=== PATIENT | female | born 1985 | race Caucasian/White ===

== ENCOUNTER → 2016-12-03 | Outpatient (CLI) | payer BC, MEDICARE ==
--- NOTE | 2016-12-07 13:46 | Pulmonary Function Test ---
Pulmonary Function Test Date of Procedure:: 12/03/16 INDICATION:: Dyspnea Referring Provider: Dr. Michael Rodriguez Box Nailer: Hayley Overton DIRECTOR STRATEGIC PLANNING - Report Spirometry: FVC 4.76 L 124% FEV1 3.15 L 97% FEV1/FVC % 66 predicted 85 Total lung capacity 5.85 L 98% Vital capacity 4.76 L 124% Inspiratory capacity 2.59 L FRC 3.16 L 111% ERV 0.25 L Residual volume 0.89 L 48% RV/TLC % 16 predicted 30 Diffusion capacity 28.5 103% DLCO/VA 4.54 100% Lung Volume: Total lung capacity 5.85 L 98% Vital capacity 4.76 L 124% Inspiratory capacity 2.59 L FRC 3.16 L 111% ERV 0.25 L Residual volume 0.89 L 48% RV/TLC % 16 predicted 30 Diffusion Capactity: Diffusion capacity 28.5 103% DLCO/VA 4.54 100% Impression: Study demonstrates a mild obstructive ventilatory defect. There is no restrictive ventilatory defect hyperinflation or air trapping. Diffusion capacity is normal
== END ==
LOC: RT 07:27
PROVIDERS: ATTEND Internal Medicine Pulmonary Disease
DX: R06.02 Shortness of breath (principal)
CPT/HCPCS: 94010; 94727; 94729; 94760

== ENCOUNTER → 2018-05-23 | Outpatient (CLI) | payer BC | LOC: OD 11:03 | PROVIDERS: ATTEND Nurse Practitioner Acute Care | DX: R30.0 Dysuria (principal) | CPT/HCPCS: 87086 ==

== ENCOUNTER 2020-07-02 15:46 | Outpatient (CLI) | payer BC ==
[2020-07-02] MEDS ORDERED: BUTALB/ACETAMINOPHEN/CAFFEINE 1 TAB EACH PO ONE (16:19)
[2020-07-02] MEDS ORDERED: BUTALB/ACETAMINOPHEN/CAFFEINE 1 TAB EACH ONE (16:31)
[2020-07-02 16:40] LABS: APPEARANCE,URINE SLIGHTLY-CLOUDY; BILIRUBIN,URINE NEGATIVE (NEGATIVE); CALCIUM OXALATE CRYSTALS,URINE RARE /HPF; COLOR,URINE YELLOW; GLUCOSE, URINE NEGATIVE (NEGATIVE); KETONES,URINE NEGATIVE (NEGATIVE); LEUKOCYTE ESTERASE,URINE NEGATIVE (NEGATIVE); NITRITE,URINE NEGATIVE (NEGATIVE); PROTEIN,URINE NEGATIVE (NEGATIVE); URINE SPECIFIC GRAVITY 1.015; UROBILINOGEN,URINE NEGATIVE mg/dL (<2.0)
[2020-07-02 16:54] LABS: URINE AMPHETAMINES SCREEN NEGATIVE; URINE BARBITURATES SCREEN NEGATIVE; URINE BENZODIAZEPINES SCREEN NEGATIVE; URINE COCAINE SCREEN NEGATIVE; URINE MARIJUANA (THC) SCREEN NEGATIVE; URINE METHADONE SCREEN NEGATIVE; URINE PHENCYCLIDINE SCREEN NEGATIVE
[2020-07-02 16:58] LABS: UR PRO/CREAT RATIO RESULT 0.2 mg/mg (0.0-0.2); URINE CREATININE 120.4 mg/dL (16-327); URINE PROTEIN 18.1 mg/dL (<12)
[2020-07-02 17:18] LABS: ABSOLUTE EOSINOPHILS # (AUTO) 0.1 10^3/uL (0.0-0.6); ABSOLUTE LYMPHOCYTES (AUTO) 1.3 10^3/uL (0.5-4.7); ABSOLUTE MONOCYTES (AUTO) 0.5 10^3/uL (0.1-1.4); ABSOLUTE NEUT (AUTO) 6.5 10^3/uL (1.7-8.2); BASOPHILS % (AUTO) 0.5 % (0-2); EOSINOPHILS % (AUTO) 1.6 % (0-6); HEMATOCRIT 31.2 % (36.0-47.0); HEMOGLOBIN 10.6 g/dL (12.0-15.5); LYMPHOCYTES % (AUTO) 15.6 % (13-45); MEAN CORPUSCULAR HGB CONC 34.1 g/dL (32.0-36.0); MEAN CORPUSCULAR VOLUME 82 fl (80-97); MONOCYTES % (AUTO) 6.2 % (3-13); PLATELET COUNT 180 10^3/uL (150-450); RED CELL DISTRIBUTION WIDTH 13.4 % (11.5-14.0); SEGMENTED NEUTROPHILS % (AUTO) 76.1 % (42-78); TOTAL CELLS COUNTED % (AUTO) 100 %; WHITE BLOOD COUNT 8.5 10^3/uL (4.0-10.5)
[2020-07-02 17:35] LABS: ALBUMIN 3.4 g/dL (3.5-5.0); ALKALINE PHOSPHATASE 89 U/L (38-126); ANION GAP 8 (5-19); ASPARTATE AMINO TRANSFERASE 19 U/L (14-36); BILIRUBIN,DIRECT 0.2 mg/dL (0.0-0.4); BILIRUBIN,TOTAL 0.3 mg/dL (0.2-1.3); BLOOD UREA NITROGEN 8 mg/dL (7-20); CARBON DIOXIDE 22 mmol/L (22-30); CHLORIDE 106 mmol/L (98-107); GLUCOSE 108 mg/dL (75-110); POTASSIUM 4.2 mmol/L (3.6-5.0); TOTAL PROTEIN 6.2 g/dL (6.3-8.2); URIC ACID 4.1 mg/dL (2.5-6.2)
--- NOTE | 2020-07-02 18:19 | Non Stress Test Report ---
Non Stress Test Datetime Report Generated by CPN: 07/02/2020 18:19 DEMOGRAPHIC EGA NST: 36.4 INDICATION Indication for Study (NST) Other: LC for Pre E VITAL SIGNS Temperature - NST: 98.3 Pulse - NST: 85 RESP - NST: 16 NBPSYS NST: 128 NBPDIA NST: 71 MONITORING Monitor Explained: Monitor Explained; Test Explained; Patient Verbalized Understanding Time on Monitor: 07/02/2020 17:59 Time off Monitor: 07/02/2020 18:08 NST INTERVENTIONS NST Interventions: PO Hydration; Reposition Patient Physician Notified NST: Saulo MD BABY A: [id number] BABY A Movement : Present Contraction Frequency : Irregular FHR Baseline : 135 Accelerations : 15X15 Decelerations : None Variability : Moderate 6-25bpm NST Review: Meets Criteria for Reactive NST NST Review and Verified By : Jadon Torres RN NSLuisa Results: Reactive NST REPORT Report Trigger: Send Report
== END 2020-07-02 18:13 | disposition home or self-care (01) ==
LOC: LC 15:46
PROVIDERS: ATTEND Obstetrics & Gynecology
DX: O16.3 Unspecified maternal hypertension, third trimester (principal); Z3A.36 36 weeks gestation of pregnancy
CPT/HCPCS: 59025; 36415; 83615; 84156; 84550; 82570; 85025; 80053; 81001; 80307; J3490

== ENCOUNTER 2020-07-07 19:25 | Inpatient (IN) | payer BC ==
[2020-07-07] MEDS ORDERED: OXYTOCIN/0.9 % SODIUM CHLORIDE 30 UNIT/500 ML RTUINJ IV PRN (19:35)
[2020-07-07] MEDS ORDERED: RINGERS SOLUTION,LACTATED 300 ML IV ONE (19:35)
[2020-07-07] MEDS ORDERED: DINOPROSTONE 10 MG VAGINAL INSERT.SR PV ONE (19:35)
[2020-07-07] MEDS ORDERED: MAG HYDROX/AL HYDROX/SIMETH SUSP 30 ML UDCUP PO PRN (19:35)
[2020-07-07] MEDS ORDERED: ZOLPIDEM TARTRATE 5 MG TABLET PO PRN (19:35)
[2020-07-07] MEDS ORDERED: ACETAMINOPHEN 325 MG TABLET PO PRN (19:35)
[2020-07-07] MEDS: RINGERS SOLUTION,LACTATED 1,000 ML IV PRN (20:10)
[2020-07-07] MEDS ORDERED: DINOPROSTONE 10 MG VAGINAL INSERT.SR ONE (20:18)
[2020-07-07 20:23] LABS: ABSOLUTE EOSINOPHILS # (AUTO) 0.2 10^3/uL (0.0-0.6); ABSOLUTE LYMPHOCYTES (AUTO) 1.6 10^3/uL (0.5-4.7); ABSOLUTE MONOCYTES (AUTO) 0.7 10^3/uL (0.1-1.4); ABSOLUTE NEUT (AUTO) 7.1 10^3/uL (1.7-8.2); BASOPHILS % (AUTO) 0.4 % (0-2); EOSINOPHILS % (AUTO) 1.6 % (0-6); HEMATOCRIT 30.1 % (36.0-47.0); HEMOGLOBIN 10.1 g/dL (12.0-15.5); MEAN CORPUSCULAR HGB CONC 33.5 g/dL (32.0-36.0); MEAN CORPUSCULAR VOLUME 83 fl (80-97); PLATELET COUNT 187 10^3/uL (150-450); RED BLOOD COUNT 3.61 10^6/uL (3.72-5.28); RED CELL DISTRIBUTION WIDTH 13.5 % (11.5-14.0); TOTAL CELLS COUNTED % (AUTO) 100 %; WHITE BLOOD COUNT 9.6 10^3/uL (4.0-10.5)
[2020-07-07 20:25] LABS: APPEARANCE,URINE CLEAR; BILIRUBIN,URINE NEGATIVE (NEGATIVE); COLOR,URINE STRAW; GLUCOSE, URINE NEGATIVE (NEGATIVE); KETONES,URINE NEGATIVE (NEGATIVE); LEUKOCYTE ESTERASE,URINE NEGATIVE (NEGATIVE); NITRITE,URINE NEGATIVE (NEGATIVE); PROTEIN,URINE NEGATIVE (NEGATIVE); URINE SPECIFIC GRAVITY 1.006; UROBILINOGEN,URINE NEGATIVE mg/dL (<2.0)
[2020-07-07 20:39] LABS: URINE AMPHETAMINES SCREEN NEGATIVE; URINE BENZODIAZEPINES SCREEN NEGATIVE; URINE COCAINE SCREEN NEGATIVE; URINE MARIJUANA (THC) SCREEN NEGATIVE; URINE METHADONE SCREEN NEGATIVE; URINE PHENCYCLIDINE SCREEN NEGATIVE
[2020-07-07 20:46] LABS: ALBUMIN 3.4 g/dL (3.5-5.0); ALKALINE PHOSPHATASE 94 U/L (38-126); ANION GAP 6 (5-19); ASPARTATE AMINO TRANSFERASE 20 U/L (14-36); BILIRUBIN,DIRECT 0.2 mg/dL (0.0-0.4); BILIRUBIN,TOTAL 0.2 mg/dL (0.2-1.3); BLOOD UREA NITROGEN 8 mg/dL (7-20); CARBON DIOXIDE 22 mmol/L (22-30); CHLORIDE 106 mmol/L (98-107); GLUCOSE 92 mg/dL (75-110); POTASSIUM 3.7 mmol/L (3.6-5.0); TOTAL PROTEIN 6.4 g/dL (6.3-8.2); URIC ACID 3.9 mg/dL (2.5-6.2)
[2020-07-07 20:47] LABS: URINE BARBITURATES SCREEN UNCONFIRMED POSITIVE
--- NOTE | 2020-07-07 23:39 | Admission Physical ---
Datetime Report Generated by CPN: 07/07/2020 23:38 CURRENT ADMISSION Chief Complaint: Uterine Contractions Indication for Induction: PreEclampsia Admit Impression : Term, Intrauterine ; Induction of Labor Admit Plan: Initiate Labor Induction Protocol ALLERGIES Medication Allergies: No Medication Allergies: gluten (07/07/2020) Latex: No Latex Allergies OBSTETRICAL HISTORY EDC: 07/26/2020 00:00 : 3 Para: 1 Term: 1 : 0 SAB: 0 IAB: 0 Ectopic: 0 Livin Cesareans: 0 VBACs: 0 Multiple Births: 0 Gestational Diabetes: No Rh Sensitization: No Incompetent Cervix: No TERESSA: No Infertility: No ART Treatment: No Uterine Anomaly: No IUGR: No Hx Previous C/S: No Macrosomia: No Hx Loss/Stillborn: No PIH: Yes Hx : No Placenta Previa/Abruption: No Depression/PP Depression: No PTL/PROM: No Post Hemorrhage: No Current Procedures: Ultrasound; NST Obstetrical History Comments: G1-SAB G2- Epidural Girl, Pre E G3- Current SEE RECORDS Alcohol: No Marijuana : No Cocaine: No Other Illicit Drugs: No Cigarettes: Never Smoker. [id number] MEDICAL HISTORY Diabetes: No Blood Transfusion: Yes Pulmonary Disease (Asthma, TB): No Breast Disease: No Hypertension: Yes Service Provider Surgery: No Heart Disease: Yes Hosp/Surgery: Yes Autoimmune Disorder: No Anesthetic Complications: No Kidney Disease: No Abnormal Pap Smear: No Neuro/Epilepsy: No Psychiatric Disorders: No Other Medical Diseases: No Hepatitis/Liver Disease: No Significant Family History: No Varicosities/Phlebitis: No Trauma/Violence : No Thyroid Dysfunction: No Medical History Comments: Heart problems, ASD repair, Anemia during , hx of blood transfusion, pre e with first , Celiac disease, Appendectomy INFECTIOUS HISTORY Gonorrhea: No Genital Herpes: No Chlamydia: No Tuberculosis: No Syphilis: No Hepatitis: No HIV/AIDS Exposure: No Rash or Viral Illness: No HPV: No PHYSICAL EXAM General: Normal HEENT: Normal Neurologic: Normal Thyroid: Normal Heart: Normal Lungs: Normal Breast: Deferred Back: Normal Abdomen: Normal Genitourinary Exam: Normal Extremities: Normal DTRs: Normal Pelvic Type: Adequate Vital Signs: Reviewed VAGINAL EXAM Dilatation: 0 Effacement: 0 Station: -3 MEMBRANES Pooling: Negative Membranes: Intact FETUS A EGA: 37.2 Monitoring: External US FHR- Baseline: 120 Variability: Moderate 6-25bpm Decelerations: None FHR Category: Category I Estimated Weight (gm): 3500 Presentation: Vertex Admit Comment: admit for induction of labor PLANS FOR LABOR AND DELIVERY Labor and Delivery: None Pain Management: Medications; Epidural Feeding Preference: Breast Benefit of Breast Feed Discussed: Yes Circumcision: N/A INFORMED CONSENT Signature: with User ID: [email or web address]
[2020-07-08] MEDS: RINGERS SOLUTION,LACTATED 1,000 ML IV PRN ×2 (03:50→13:59)
--- NOTE | 2020-07-08 08:31 | L&D Progress Notes ---
PROGRESS NOTES Datetime Report Generated by CPN: 07/08/2020 08:31 PROGRESS NOTE Comment: Cat 1 strip, irreg uc's, no c/o Dr. Saulo aware of admission and POC VAGINAL EXAM Dilatation: 0 Effacement: 0 Station: -3 LAST VAGINAL EXAM-NURSING Nursing Exam Dilitation: 0.0 Nursing Exam Effacement: thick Nursing Exam Station: -3 MEMBRANES Pooling: Negative Membranes: Intact FETUS A : 37.0 Estimated Weight (gm): 3500 Presentation: Vertex SIGNATURE SIGNATURE: [id number] Assignment: Mely Vernon MD Signature: with User ID: [email or web address] : with User ID: [email or web address]
[2020-07-08] MEDS ORDERED: OXYTOCIN 10 UNIT/ML VIAL ONE (09:00)
[2020-07-08] MEDS ORDERED: OXYTOCIN/0.9 % SODIUM CHLORIDE 30 UNIT/500 ML RTUINJ ONE (09:00)
[2020-07-08] MEDS ORDERED: LIDOCAINE 1% INJ-PF (10 MG/ML) 30 ML SDV ONE (09:00)
[2020-07-08] MEDS ORDERED: MISOPROSTOL 0.2 MG TABLET ONE (09:00)
--- NOTE | 2020-07-08 12:01 | L&D Progress Notes ---
PROGRESS NOTES Datetime Report Generated by CPN: 07/08/2020 12:01 PROGRESS NOTE Vital Signs : Reviewed; Within Normal Limits Comment: Cat 1 strip, uc's q 3-4, comfortable Plans on epidural VAGINAL EXAM Dilatation: 0 Effacement: 0 Station: -3 LAST VAGINAL EXAM-NURSING Nursing Exam Dilitation: 3.0 Nursing Exam Effacement: 50 Nursing Exam Station: -2 Nursing Exam Contractions: pt ambulating at bedside MEMBRANES Pooling: Negative Membranes: Intact FETUS A : 37.0 Estimated Weight (gm): 3500 Presentation: Vertex SIGNATURE SIGNATURE: [id number] Assignment: Mely Vernon MD Signature: with User ID: [email or web address] : with User ID: [email or web address]
[2020-07-08 12:14] LABS: HEMATOCRIT 31.8 % (36.0-47.0); HEMOGLOBIN 10.8 g/dL (12.0-15.5); MEAN CORPUSCULAR HEMOGLOBIN 27.9 pg (27.0-33.4); MEAN CORPUSCULAR HGB CONC 33.8 g/dL (32.0-36.0); MEAN CORPUSCULAR VOLUME 82 fl (80-97); PLATELET COUNT 188 10^3/uL (150-450); RED BLOOD COUNT 3.86 10^6/uL (3.72-5.28); RED CELL DISTRIBUTION WIDTH 13.7 % (11.5-14.0); WHITE BLOOD COUNT 9.5 10^3/uL (4.0-10.5)
[2020-07-08] MEDS ORDERED: ROPIVACAINE HCL 0.2% INJ/PF (2 MG/ML) 20 ML SDV ONE (12:22)
[2020-07-08] MEDS ORDERED: EPHEDRINE SULFATE INJ 50 MG/1 ML AMPULE ONE (12:22)
[2020-07-08] MEDS ORDERED: FENTANYL/BUPIVACAINE/NS/PF 300 MCG/150 ML RTUINJ EPI ONE (12:22)
[2020-07-08 12:36] LABS: ALBUMIN 3.5 g/dL (3.5-5.0); ALKALINE PHOSPHATASE 103 U/L (38-126); ASPARTATE AMINO TRANSFERASE 20 U/L (14-36); BILIRUBIN,DIRECT 0.2 mg/dL (0.0-0.4); BILIRUBIN,TOTAL 0.4 mg/dL (0.2-1.3); BLOOD UREA NITROGEN 4 mg/dL (7-20); CALCIUM 8.6 mg/dL (8.4-10.2); CARBON DIOXIDE 23 mmol/L (22-30); CHLORIDE 107 mmol/L (98-107); GLUCOSE 94 mg/dL (75-110); POTASSIUM 4.3 mmol/L (3.6-5.0); TOTAL PROTEIN 6.5 g/dL (6.3-8.2); URIC ACID 3.6 mg/dL (2.5-6.2)
[2020-07-08 12:37] LABS: ANION GAP 4 (5-19)
[2020-07-08] MEDS ORDERED: NALBUPHINE HCL INJ 10 MG/1 ML AMPULE ONE (13:36)
[2020-07-08] MEDS ORDERED: NALBUPHINE HCL INJ 10 MG/1 ML AMPULE INJ ONE (14:00)
[2020-07-08] MEDS ORDERED: CARBOPROST TROMETHAMINE INJ 250 MCG/1 ML AMPULE ONE (15:36)
[2020-07-08] MEDS ORDERED: LOPERAMIDE HCL 2 MG CAPSULE ONE (15:36)
[2020-07-08] MEDS ORDERED: DIPHENHYDRAMINE HCL 25 MG CAPSULE PO PRN (16:05)
[2020-07-08] MEDS ORDERED: PSEUDOEPHEDRINE HCL 30 MG TABLET PO PRN (16:05)
[2020-07-08] MEDS ORDERED: PROMETHAZINE HCL INJ 25 MG/1 ML VIAL IV PRN (16:05)
[2020-07-08] MEDS ORDERED: ACETAMINOPHEN WITH CODEINE #3 TABLET PO PRN ×2 (16:05)
[2020-07-08] MEDS ORDERED: DIPH/PERTUSS(ACELL)/TETANUS VAC/PF 0.5 ML SYR (>=10YO) IM PRN (16:05)
[2020-07-08] MEDS ORDERED: ZOLPIDEM TARTRATE 5 MG TABLET PO PRN (16:05)
[2020-07-08] MEDS ORDERED: PROMETHAZINE HCL 25 MG TABLET PO PRN (16:05)
[2020-07-08] MEDS ORDERED: OXYTOCIN/0.9 % SODIUM CHLORIDE 30 UNIT/500 ML RTUINJ IV PRN (16:05)
[2020-07-08] MEDS ORDERED: NA PHOS,M-B/NA PHOS,DI-BA (ADULT) 133 ML ENEMA PR PRN (16:05)
[2020-07-08] MEDS ORDERED: MAGNESIUM HYDROXIDE SUSP 30 ML UDCUP PO PRN (16:05)
[2020-07-08] MEDS ORDERED: MISOPROSTOL 0.2 MG TABLET PR PRN (16:05)
[2020-07-08] MEDS ORDERED: PROMETHAZINE HCL 25 MG SUPP.RECT PR PRN (16:05)
[2020-07-08] MEDS ORDERED: BENZOCAINE/MENTHOL AEROSOL SPRAY 56 ML TOP PRN (16:05)
[2020-07-08] MEDS ORDERED: GLYCERIN/WITCH HAZEL LEAF 1 EACH MED..WIPE TP PRN (16:05)
[2020-07-08] MEDS ORDERED: ACETAMINOPHEN 650 MG SUPP.RECT PR PRN (16:05)
[2020-07-08] MEDS ORDERED: DIBUCAINE 1% OINTMENT 28 GM TP PRN (16:05)
[2020-07-08] MEDS ORDERED: MEASLES,MUMPS&RUBELLA VACC/PF 0.5 ML VIAL SUBCUT PRN (16:05)
--- NOTE | 2020-07-08 18:21 | Delivery Summary ---
Del Sum A-C Datetime Report Generated by CPN: 07/08/2020 18:20 DELIVERY PERSONNEL DELIVERY PERSONNEL: [id number] Delivery Doctor:: Mely Vernon MD Labor and Delivery Nurse:: Alyse Torres RNresearch and evaluation manager Nurse:: JAMES Godoy Mechanical Sound Technician/AIR ANALYSIS TECHNICIAN: sofía oliveira RN Additional Personnel: : Rena Huerta RN MATERNAL INFORMATION Delivery Anesthesia: Epidural Medications After Delivery: Pitocin 30 Units in 500ml NS/D5W; Cytotec 1000mcg Per Rectum/Vagina Meds After Delivery Comment: first 200mLs infused open bolus; remaining infused at 95mLs/her Estimated Blood Loss (ml): 200 Delivery QBL: 200 Maternal Complications: None Provider Comments: uterine and vaginal expoloartion performed with no evidence of retained membranes or sulcal tears. LABOR SUMMARY EDC: 07/26/2020 00:00 No. Babies in Womb: 1 Attempted: No Labor Anesthesia: Epidural LABOR INFORMATION Reason for Induction: Pre-Eclampsia Onset of Labor: 07/08/2020 14:38 Complete Dilatation: 07/08/2020 15:29 Cervical Ripening Agents: Cervidil Oxytocin: Induction Group B Beta Strep: negative Antibiotics # of Doses: 0 Name of Antibiotic Given: n/a Steroids Given: None Reason Steroids Not Administered: Not Applicable MEMBRANES Membranes Rupture Method: Artificial Rupture of Membranes: 07/08/2020 14:38 Length of Rupture (hr): 1.10 Amniotic Fluid Color: Clear Amniotic Fluid Amount: Moderate Amniotic Fluid Odor: Normal STAGES OF LABOR Stage 1 hr: 0 Stage 1 min: 51 Stage 2 hr: 0 Stage 2 min: 15 Stage 3 hr: 0 Stage 3 min: 3 Total Time in Labor hr: 1 Total Time in Labor min: 9 VAGINAL DELIVERY Episiotomy: None Laceration #1: Perineal Laceration Extension #1: Second Degree Laceration Repair: Yes Laceration Repair Note: Repair in normal fashion with 2-0 chromic. Sponge Count Correct: N/A Sharps Count Correct: N/A CSECTION DELIVERY Primary Indication: N/A Secondary Indication: N/A CSection Incidence: N/A Labor: N/A Elective: N/A CSection Incision: N/A BABY A INFORMATION Infant Delivery Date/Time: 07/08/2020 15:44 Method of Delivery: Vaginal Nurse Controlled Delivery: No Born in Route : No : N/A Forceps: N/A Vacuum Extraction: N/A Shoulder Dystocia : No PRESENTATION/POSITION BABY A Presentation: Cephalic Cephalic Presentation: Vertex Vertex Position: Right Occipital Anterior Breech Presentation: N/A PLACENTA INFORMATION BABY A Placenta Delivery Time : 07/08/2020 15:47 Placenta Method of Delivery: Spontaneous Placenta Status: Delivered SCORES BABY A Heart Rate 1 min: >100 bpm Resp Effort 1 min: Good Cry Reflex Irritability 1 min: Cough or Sneeze or Pulls Away Muscle Tone 1 min: Active Motion Color 1 min: Blue/Pale Resuscitation Effort 1 min: Tactile Stimulation SCORE 1 MIN: 8 Heart Rate 5 min: >100 bpm Resp Effort 5 min: Good Cry Reflex Irritability 5 min: Cough or Sneeze or Pulls Away Muscle Tone 5 min: Active Motion Color 5 min: Body Bandera, Extremities Blue Resuscitation Effort 5 min: N/A SCORE 5 MIN: 9 Resuscitation Effort 10 min: N/A INFANT INFORMATION BABY A Gestational Age at Delivery: 37.3 Gestational Status: Early Term- 37- 38.6 Weeks Infant Outcome : Liveborn Infant Condition : Stable Infant Sex: Female IDENTIFICATION BABY A Verification Date/Time: 07/08/2020 16:14 ID Band Number: [id number] Mother's Name Verified: Yes Infant RN Verifying Infant: Jadon Torres, RN Additional Verifying Personnel: Dm Bradley, RN WEIGHT/LENGTH BABY A Birthweight (gm): 3166 Weight (lb): 7 Infant Weight (oz): 0 Length (in): 20.50 Infant Length (cm): 52.07 CORD INFORMATION BABY A No. Cord Vessels: 3 Nuchal Cord : N/A Cord Blood Taken: Yes-For Eval (Mom's Blood Type - or O+) Infant Suction: None ASSESSMENT BABY A Infant Complications: None Physical Findings at Delivery: Within Normal Limits Respirations: Appears Normal Skin to Skin: Yes Skin to Skin Time (min): 60 Infant Care By: MMobley,RN Transferred To: Remains with Mother BABY B INFORMATION : N/A SIGNATURES Signature: with User ID: [email or web address]
[2020-07-08] MEDS: DOCUSATE SODIUM 100 MG CAPSULE PO SCH (21:28)
[2020-07-08] MEDS: FERROUS SULFATE 325 MG TABLET PO SCH (21:28)
[2020-07-08] MEDS: IBUPROFEN 800 MG TABLET PO SCH (21:35)
[2020-07-08] MEDS: FAMOTIDINE 20 MG TABLET PO SCH (21:36)
[2020-07-08] MEDS ORDERED: DOCUSATE SODIUM 100 MG CAPSULE PO ONE (22:00)
[2020-07-08] MEDS ORDERED: FERROUS SULFATE 325 MG TABLET PO ONE (22:00)
--- NOTE | 2020-07-09 03:15 | Birth Certificate Data ---
Cert Data Datetime Report Generated by RADHA: 07/09/2020 03:15 CERTIFICATE DATA 47a. Care: Yes (07/02/2020 16:17:Mahsa Santoyo RN) 47b. Date of First Visit: 01/10/2020 00:00 (07/02/2020 16:17:Mahsa Santoyo RN) 47c. Date of Last Visit: 07/05/2020 00:00 (07/02/2020 16:17:Mahsa Santoyo RN) 47d. Number of Visits: 10 (07/02/2020 16:17:Mahsa Santoyo RN) 48a. Number of Prev Live Births: 1 (07/02/2020 16:17:Mahsa Santoyo RN) 48b. Now Livin (07/02/2020 16:17:Ashley Julio RN) 48c. Live Births Now : 0 (07/02/2020 16:17:QS system process) 48d. Date of Last Live : 07/23/2015 00:00 (07/02/2020 16:17:Mahsa Santoyo RN) 48e. Losses: 1 (07/02/2020 16:17:Mahsa Santoyo RN) 48f. Date of Last Preg Loss: 02/22/2014 00:00 (07/02/2020 16:17:Mahsa Santoyo RN) RISK FACTORS IN THIS 49a. Diabetes: No (07/02/2020 16:17:Mahsa Santoyo RN) 49b. Hypertension: Yes (07/02/2020 16:17:Mahsa Santoyo RN) Type of Hypertension: Gestational (PIH, Pre-eclampsia) (07/02/2020 16:17:Mahsa Santoyo RN) 49c. Previous Births: 0 (07/02/2020 16:17:Ashley Julio RN) 49d. Stillborns: No (07/02/2020 16:17:Mahsa Santoyo RN) 49d. IUGR: No (07/02/2020 16:17:Mahsa Santoyo RN) 49e. Infertility Treatment: No (07/02/2020 16:17:Mahsa Santoyo RN) 49f. Previous Cesareans: 0 (07/02/2020 16:17:Mahsa Santoyo RN) Mother's Height 50b. Height Inches: 67 (07/08/2020 21:27:QS system process) Mother's Weight 51a. Pre- Weight (lbs): 177 (07/02/2020 16:17:Mahsa Santoyo RN) 51b. Weight at Delivery (lbs): 218 (07/07/2020 19:39:QS system process) Infections Present/Treated 53a. Gonorrhea: No (07/02/2020 16:17:Mahsa Santoyo RN) Results this Hospital Visit : Negative (07/02/2020 16:17:Ashley Julio RN) 53b. Syphilis: No (07/02/2020 16:17:Mahsa Santoyo RN) Results this Hospital Visit: NONREACTIVE (07/07/2020 20:00:QS system process) 53c. Chlamydia: No (07/02/2020 16:17:Mahsa Santoyo RN) Results this Hospital Visit: Negative (07/02/2020 16:17:Ashley Julio RN) 53d. Hepatitis B: No (07/02/2020 16:17:Mahsa Santoyo RN) Results this Hospital Visit: Negative (07/02/2020 16:17:Ashley Julio RN) 53h. Mother Tested for HBsAG: Yes (07/02/2020 16:17:Mahsa Santoyo RN) 53i. Date Tested: 01/10/2020 00:00 (07/02/2020 16:17:Mahsa Santoyo RN) 53j. Test Result: Negative (07/02/2020 16:17:Ashley Julio RN) Obstetric Procedures 54a, b, c. Obstetric Procedures: Ultrasound; NST (07/02/2020 16:17:Mahsa Santoyo RN) Onset of Labor 56a. PROM >12 Hrs: 1.10 (07/02/2020 16:17:QS system process) 56b. Precipitous Labor <3 Hrs: 1 (07/02/2020 16:17:QS system process) 56c. Prolonged Labor > 20 Hrs: 1 (07/02/2020 16:17:QS system process) 57a. Induction of Labor: Induction (07/02/2020 16:17:Alyse Torres RN) 57a. Induction of Labor: Cervidil (07/07/2020 20:26:Israel Burns RN) 57c. Non-Vertex Presentation A: Vertex (07/02/2020 16:17:Alyse Torres RN) 57d. Steroids - Lung Mat: None (07/02/2020 16:17:Alyse Torres RN) 57d. Steroids - Lung Mat: Not Applicable (07/02/2020 16:17:Alyse Torres RN) 57f. Mat Ch[place] or Temp >100.4: 99.0 (07/02/2020 16:17:Alyse Torres RN) 57g. Moderate/Heavy Meconium: Clear (07/08/2020 14:38:Alyse Torres RN) 57h. Intolerance of Labor: N/A (07/02/2020 16:17:Alyse Torres RN) : N/A (07/02/2020 16:17:Alyse Torres RN) 57i. Epidural/Spinal Anesthesia: Epidural (07/02/2020 16:17:Alyse Torres RN) Method of Delivery 58a. Forceps - Unsuccessful A: N/A (07/02/2020 16:17:Alyse Torres RN) 58b. Vacuum - Unsuccessful A: N/A (07/02/2020 16:17:Aylse Torres RN) 58c. Presentation at 58c. Presentation at - A : Vertex (07/02/2020 16:17:Alyse Torres RN) 58c. Presentation at - A : N/A (07/02/2020 16:17:Alyse Torres RN) 58c. Presentation at - A : Cephalic (07/02/2020 16:17:Alyse Torres RN) Final Route and Method of Del 58d. Baby A Route/Delivery: Vaginal (07/08/2020 15:44:Alyse Torres RN) 58e. Trial of Labor Attempted: No (07/02/2020 16:17:Alyse Torres RN) 58e. Trial of Labor Attempted A: N/A (07/02/2020 16:17:Alyse Torres RN) 58e. Trial of Labor Attempted B: N/A (07/02/2020 16:17:Alyse Torres RN) Maternal Morbidity 59b. 3rd or 4th Degree Lacs: Perineal (07/02/2020 16:17:Mely Vernon MD ([facility])) 59b. 3rd or 4th Degree Lacs: Second Degree (07/02/2020 16:17:Alyse Torres RN) Birthweight Baby A: 3166 (07/02/2020 16:17:JAMES Godoy) 60a. Pounds : 7 (07/02/2020 16:17:QS system process) 60b. Ounces: 0 (07/02/2020 16:17:QS system process) 61. GA at Delivery Baby A: 37.3 (07/02/2020 16:17:Alyse Torres RN) : Early Term- 37- 38.6 Weeks (07/02/2020 16:17:QS system process) 62a. 5 Minute Baby A: 9 (07/02/2020 16:17:QS system process)
[2020-07-09] MEDS: IBUPROFEN 800 MG TABLET PO SCH ×3 (05:21→21:19)
[2020-07-09 08:02] LABS: HEMATOCRIT 27.9 % (36.0-47.0); HEMOGLOBIN 9.4 g/dL (12.0-15.5); MEAN CORPUSCULAR HEMOGLOBIN 27.9 pg (27.0-33.4); MEAN CORPUSCULAR HGB CONC 33.5 g/dL (32.0-36.0); MEAN CORPUSCULAR VOLUME 83 fl (80-97); PLATELET COUNT 145 10^3/uL (150-450); RED BLOOD COUNT 3.35 10^6/uL (3.72-5.28); RED CELL DISTRIBUTION WIDTH 13.8 % (11.5-14.0); WHITE BLOOD COUNT 8.7 10^3/uL (4.0-10.5)
--- NOTE | 2020-07-09 09:20 | PDOC PROGRESS REPORT ---
Subjective-OB Progress Note for:: 07/09/20 - PP Day #1, doing well, UOB, voiding, IOL for Pre- eclampsia, denies headache. A negative, Rubella Immune, Physical Exam (OB) Vital Signs: Temp Pulse Resp BP Pulse Ox 98.2 F 75 16 134/63 H 100 07/09/20 08:00 07/09/20 08:00 07/09/20 08:00 07/09/20 08:00 07/09/20 08:00 Intake & Output 07/08/20 07/09/20 07/10/20 06:59 06:59 06:59 Intake Total 958 4000 Output Total 900 Balance 958 3100 Weight 99 kg - General General Appearance: Appears well, Alert In distress: None - PIH/Pre-Eclampsia Clonus: Negative Headache: Absent Epigastric Pain: No Visual Changes: No - Maternal Morbidity 59. Maternal Morbidity (serious complications experinced by the mother associated with labor and delivery: None of the above - Lochia Lochia Amount: Small 10-25 ml Lochia Color: Rubra/Red - Abdomen Description: Soft Hernia Present: No Fundal Description: Firm, Midline Fundal Height: u/u - u/2 - Respiratory Respiratory Status: No respiratory distress - Abdominal Distension: No distension - Genitourinary Genitourinary Note: voiding - Extremities Upper extremity: Normal inspection Lower extremities: Edema - Neurological Cognition: Normal Orientation: AAOx4 - Psychological Associated symptoms: Normal affect, Normal mood - Skin Skin Moisture: Dry Objective-Diagnostic Laboratory: 07/09/20 07:00 07/08/20 12:06 07/08/20 07/08/20 07/09/20 12:06 12:06 07:00 WBC 9.5 8.7 RBC 3.86 3.35 L Hgb 10.8 L 9.4 L Hct 31.8 L 27.9 L MCV 82 83 MCH 27.9 27.9 MCHC 33.8 33.5 RDW 13.7 13.8 Plt Count 188 145 L Sodium 134.4 L Potassium 4.3 Chloride 107 Carbon Dioxide 23 Anion Gap 4 L BUN 4 L Creatinine 0.59 Est GFR ( Amer) > 60 Glucose 94 Uric Acid 3.6 Calcium 8.6 Total Bilirubin 0.4 AST 20 Alkaline Phosphatase 103 Total Protein 6.5 Albumin 3.5 Blood Type 07/09/20 07:00 WBC RBC Hgb Hct MCV MCH MCHC RDW Plt Count Sodium Potassium Chloride Carbon Dioxide Anion Gap BUN Creatinine Est GFR ( Amer) Glucose Uric Acid Calcium Total Bilirubin AST Alkaline Phosphatase Total Protein Albumin Blood Type A NEGATIVE Assessment and Plan(PN) - Assessment and Plan (1) Anemia Qualifiers: Anemia type: iron deficiency Iron deficiency anemia type: inadequate dietary iron intake Qualified Code(s): D50.8 - Other iron deficiency anemias Is this a current diagnosis for this admission?: Yes (2) Blood transfusion complicating Is this a current diagnosis for this admission?: No (3) Delivery normal Is this a current diagnosis for this admission?: Yes (4) GBS (group B Streptococcus carrier), +RV culture, currently Is this a current diagnosis for this admission?: Yes (5) Gestational hypertension Is this a current diagnosis for this admission?: No Plan: ambulation encouraged, elevated BP precautions reviewed. Routine PP orders (6) Pre-eclampsia affecting , antepartum Is this a current diagnosis for this admission?: Yes - Time Spent with Patient Time with patient: Less than 15 minutes Medications reviewed and adjusted accordingly: Yes - Disposition Anticipated Discharge Disposition: Home, Self Care Anticipated Discharge Timeframe: within 24 hours
[2020-07-09] MEDS: PRENATAL VITAMIN W DHA CAPSULE PO SCH (10:22)
[2020-07-09] MEDS: FERROUS SULFATE 325 MG TABLET PO SCH ×2 (10:22→17:22)
[2020-07-09] MEDS: FAMOTIDINE 20 MG TABLET PO SCH ×2 (10:22→21:20)
[2020-07-09] MEDS: DOCUSATE SODIUM 100 MG CAPSULE PO SCH ×2 (10:22→17:21)
[2020-07-09] MEDS: SENNOSIDES/DOCUSATE 8.6-50 MG 1 EACH TABLET PO SCH (10:24)
[2020-07-10] MEDS: IBUPROFEN 800 MG TABLET PO SCH ×2 (05:55→13:52)
[2020-07-10] MEDS: FAMOTIDINE 20 MG TABLET PO SCH (10:21)
[2020-07-10] MEDS: PRENATAL VITAMIN W DHA CAPSULE PO SCH (10:22)
[2020-07-10] MEDS: DOCUSATE SODIUM 100 MG CAPSULE PO SCH (10:22)
[2020-07-10] MEDS: FERROUS SULFATE 325 MG TABLET PO SCH (10:22)
[2020-07-10] MEDS: SENNOSIDES/DOCUSATE 8.6-50 MG 1 EACH TABLET PO SCH (10:22)
[2020-07-10 11:14] LABS: HEMATOCRIT 29.7 % (36.0-47.0); HEMOGLOBIN 10.1 g/dL (12.0-15.5); MEAN CORPUSCULAR HEMOGLOBIN 28.5 pg (27.0-33.4); MEAN CORPUSCULAR HGB CONC 34.1 g/dL (32.0-36.0); MEAN CORPUSCULAR VOLUME 84 fl (80-97); PLATELET COUNT 190 10^3/uL (150-450); RED BLOOD COUNT 3.56 10^6/uL (3.72-5.28); RED CELL DISTRIBUTION WIDTH 13.6 % (11.5-14.0); WHITE BLOOD COUNT 8.1 10^3/uL (4.0-10.5)
[2020-07-10 12:04] VITALS: BP 134/63
--- NOTE | 2020-07-10 14:29 | PDOC DISCHARGE SUMMARY ---
Impression - Admit/DC Date/PCP Admission Date/Primary Care Provider: 07/07/20 19:25 FAITH SHELDON MD Discharge Date: 07/10/20 - Discharge Diagnosis (1) Delivery normal Is this a current diagnosis for this admission?: Yes (2) Pre-eclampsia affecting , antepartum Is this a current diagnosis for this admission?: Yes (3) Anemia complicating in third trimester Is this a current diagnosis for this admission?: Yes (4) Perineal laceration during delivery, delivered Is this a current diagnosis for this admission?: Yes - Assessment Summary: 34yo ppd 2 stable and ready for delivery understands all warning s/s and reasons to rtc/[facility] - Additional Information Resuscitation Status: Full Code Discharge Diet: As Tolerated, Regular Discharge Activity: Activity As Tolerated Referrals: FAITH SHELDON MD [Primary Care Provider] - Prescriptions: Ibuprofen [Motrin 800 mg Tablet] 800 mg PO Q8HP PRN #20 tablet PRN Reason: Docusate Sodium [Colace 100 mg Capsule] 100 mg PO BID #60 capsule Ferrous Sulfate [Feosol 325 mg Tablet] 325 mg PO BID #60 tablet Home Medications: No.137/Iron/Folic Acd [ Vitamin Tablet] 1 tab PO DAILY 07/04/15 Docusate Sodium [Colace 100 mg Capsule] 100 mg PO BID #60 capsule 07/10/20 Ferrous Sulfate [Feosol 325 mg Tablet] 325 mg PO BID #60 tablet 07/10/20 Ibuprofen [Motrin 800 mg Tablet] 800 mg PO Q8HP PRN #20 tablet 07/10/20 Hospital Course 59. Maternal Morbidity (serious complications experinced by the mother associated with labor and delivery: None of the above Results Laboratory Results: WBC 8.1 10^3/uL (4.0-10.5) 07/10/20 11:07 RBC 3.56 10^6/uL (3.72-5.28) L 07/10/20 11:07 Hgb 10.1 g/dL (12.0-15.5) L 07/10/20 11:07 Hct 29.7 % (36.0-47.0) L 07/10/20 11:07 MCV 84 fl (80-97) 07/10/20 11:07 MCH 28.5 pg (27.0-33.4) 07/10/20 11:07 MCHC 34.1 g/dL (32.0-36.0) 07/10/20 11:07 RDW 13.6 % (11.5-14.0) 07/10/20 11:07 Plt Count 190 10^3/uL (150-450) 07/10/20 11:07 Lymph % (Auto) 17.0 % (13-45) 07/07/20 20:00 [place] % (Auto) 7.0 % (3-13) 07/07/20 20:00 Eos % (Auto) 1.6 % (0-6) 07/07/20 20:00 Baso % (Auto) 0.4 % (0-2) 07/07/20 20:00 Absolute Neuts (auto) 7.1 10^3/uL (1.7-8.2) 07/07/20 20:00 Absolute Lymphs (auto) 1.6 10^3/uL (0.5-4.7) 07/07/20 20:00 Absolute Monos (auto) 0.7 10^3/uL (0.1-1.4) 07/07/20 20:00 Absolute Eos (auto) 0.2 10^3/uL (0.0-0.6) 07/07/20 20:00 Absolute Basos (auto) 0.0 10^3/uL (0.0-0.2) 07/07/20 20:00 Seg Neutrophils % 74.0 % (42-78) 07/07/20 20:00 Sodium 134.4 mmol/L (137-145) L 07/08/20 12:06 Potassium 4.3 mmol/L (3.6-5.0) 07/08/20 12:06 Chloride 107 mmol/L (98-107) 07/08/20 12:06 Carbon Dioxide 23 mmol/L (22-30) 07/08/20 12:06 Anion Gap 4 (5-19) L 07/08/20 12:06 BUN 4 mg/dL (7-20) L 07/08/20 12:06 Creatinine 0.59 mg/dL (0.52-1.25) 07/08/20 12:06 Est GFR ( Amer) > 60 (>60) 07/08/20 12:06 Est GFR (MDRD) Non-Af > 60 (>60) 07/08/20 12:06 Glucose 94 mg/dL (75-110) 07/08/20 12:06 Uric Acid 3.6 mg/dL (2.5-6.2) 07/08/20 12:06 Calcium 8.6 mg/dL (8.4-10.2) 07/08/20 12:06 Total Bilirubin 0.4 mg/dL (0.2-1.3) 07/08/20 12:06 Direct Bilirubin 0.2 mg/dL (0.0-0.4) 07/08/20 12:06 Neonat Total Bilirubin Not Reportable 07/08/20 12:06 Neonat Direct Bilirubin Not Reportable 07/08/20 12:06 Neonat Indirect Bili Not Reportable 07/08/20 12:06 AST 20 U/L (14-36) 07/08/20 12:06 ALT 12 U/L (<35) 07/08/20 12:06 Alkaline Phosphatase 103 U/L (38-126) 07/08/20 12:06 Lactate Dehydrogenase 168 U/L (120-246) 07/07/20 20:00 Total Protein 6.5 g/dL (6.3-8.2) 07/08/20 12:06 Albumin 3.5 g/dL (3.5-5.0) 07/08/20 12:06 Urine Color STRAW 07/07/20 19:50 Urine Appearance CLEAR 07/07/20 19:50 Urine pH 6.0 (5.0-9.0) 07/07/20 19:50 Ur Specific [place] 1.006 07/07/20 19:50 Urine Protein NEGATIVE mg/dL (NEGATIVE) 07/07/20 19:50 Urine Glucose (UA) NEGATIVE mg/dL (NEGATIVE) 07/07/20 19:50 Urine Ketones NEGATIVE mg/dL (NEGATIVE) 07/07/20 19:50 Urine Blood SMALL (NEGATIVE) H 07/07/20 19:50 Urine Nitrite NEGATIVE (NEGATIVE) 07/07/20 19:50 Urine Bilirubin NEGATIVE (NEGATIVE) 07/07/20 19:50 Urine Urobilinogen NEGATIVE mg/dL (<2.0) 07/07/20 19:50 Ur Leukocyte Esterase NEGATIVE (NEGATIVE) 07/07/20 19:50 Urine WBC (Auto) 1 /HPF 07/07/20 19:50 Urine RBC (Auto) 0 /HPF 07/07/20 19:50 Squamous Epi Cells Auto <1 /HPF 07/07/20 19:50 Urine Mucus (Auto) RARE /LPF 07/07/20 19:50 Urine Ascorbic Acid NEGATIVE (NEGATIVE) 07/07/20 19:50 Urine Opiates Screen NEGATIVE 07/07/20 19:50 Urine Methadone Screen NEGATIVE 07/07/20 19:50 Ur Barbiturates Screen UNCONFIRMED POSITIVE 07/07/20 19:50 Ur Phencyclidine Scrn NEGATIVE 07/07/20 19:50 Ur Amphetamines Screen NEGATIVE 07/07/20 19:50 U Benzodiazepines Scrn NEGATIVE 07/07/20 19:50 Urine Cocaine Screen NEGATIVE 07/07/20 19:50 U Marijuana (THC) Screen NEGATIVE 07/07/20 19:50 RPR NONREACTIVE (NONREACTIVE) 07/07/20 20:00 Blood Type A NEGATIVE 07/09/20 07:00 Antibody Screen POSITIVE 07/07/20 20:00 Antibody Identification RHOGAM INDUCED ANTI-D 07/07/20 20:00 Screen NEGATIVE 07/09/20 07:00
== END 2020-07-10 14:53 | disposition home or self-care (01) | DRG 807 ==
LOC: LR 19:25 → 2S 07-08 18:35
PROVIDERS: ADMIT Obstetrics & Gynecology; ATTEND Obstetrics & Gynecology
PROC: 10E0XZZ Delivery of Products of Conception, External Approach (ICD-10-PCS; principal; 2020-07-08)
PROC: 0KQM0ZZ Repair Perineum Muscle, Open Approach (ICD-10-PCS; 2020-07-08)
PROC: 10907ZC Drainage of Amniotic Fluid, Therapeutic from Products of Conception, Via Natural or Artificial Opening (ICD-10-PCS; 2020-07-08)
PROC: 3E0334Z Introduction of Serum, Toxoid and Vaccine into Peripheral Vein, Percutaneous Approach (ICD-10-PCS; 2020-07-08)
PROC: 3E033VJ Introduction of Other Hormone into Peripheral Vein, Percutaneous Approach (ICD-10-PCS; 2020-07-08)
DX: O14.94 Unspecified pre-eclampsia, complicating childbirth (principal); Z37.0 Single live birth; D50.8 Other iron deficiency anemias; O70.1 Second degree perineal laceration during delivery; O99.02 Anemia complicating childbirth; O99.824 Streptococcus B carrier state complicating childbirth; O13.4 Gestational [pregnancy-induced] hypertension without significant proteinuria, complicating childbirth; K90.0 Celiac disease; Z3A.37 37 weeks gestation of pregnancy
CPT/HCPCS: 1967; 36415; 80053; 80307; 80345; 81001; 83615; 84550; 85025; 85027; 85461; 86592; 86850; 86870; 86900; 86901; 94760; G0480; J2300; J2590; J2790; J2795; J3010; J3490